=== PATIENT | female | born 1950 | race African-American/Black ===

== ENCOUNTER → 2024-10-27 | Outpatient (REF) | payer MEDICARE ==
[~2024-10-27] MED LIST: ABILIFY30 MG PO; AMBIEN10 MG PO; ARMOUR THYROID120 MG PO; ASPIRIN325 MG PO; BENZTROPINE MESY1 MG PO; DIAZEPAM5 MG PO; IBUPROFEN PO; LAMOTRIGINE150 MG PO; LOSARTAN-HCTZ1 EAC1 PO; PRASTERONE PO; PREGNENOLONE PO; PROPRANOLOL HC120 MG PO; VALIUM5 MG PO; [UNRECOGNIZED DRUG - OTHER] PO; [UNRECOGNIZED DRUG - OTHER] VG
== END ==
LOC: CT 09:36
PROVIDERS: ATTEND Ophthalmology
DX: H52.223 Regular astigmatism, bilateral (principal); Z96.1 Presence of intraocular lens; H52.4 Presbyopia
CPT/HCPCS: 70480